=== PATIENT | male | born 1965 ===

== ENCOUNTER 2021-02-24 17:39 | Inpatient (IN) | payer OTHER ==
[~2021-02-24] VITALS: Ht 167.6 cm; Wt 56.7 kg
== END 2021-03-05 18:00 | disposition home or self-care (01) | DRG 603 ==
LOC: ER 17:39 → MEDI 02-25 10:50
PROVIDERS: ADMIT Internal Medicine; ATTEND Internal Medicine
PROC: B54BZZZ Ultrasonography of Right Lower Extremity Veins (ICD-10-PCS; principal; 2021-03-01)
PROC: 0HDMXZZ Extraction of Right Foot Skin, External Approach (ICD-10-PCS; 2021-03-01)
DX: L03.115 Cellulitis of right lower limb (principal); S90.821A Blister (nonthermal), right foot, initial encounter; M62.82 Rhabdomyolysis; I96 Gangrene, not elsewhere classified; N17.8 Other acute kidney failure; M79.671 Pain in right foot; I10 Essential (primary) hypertension; Z20.822 Contact with and (suspected) exposure to COVID-19